=== PATIENT | female | born 1995 | race Two or more races ===

== ENCOUNTER 2016-07-11 17:04 | Observation (INO) | payer OTHER ==
[2015-07-28 17:23] VITALS: BP 115/64
== END 2016-07-12 | disposition home or self-care (01) ==
LOC: 3 SO LND 17:04
PROVIDERS: ADMIT Specialist; ATTEND Specialist
DX: O9A.213 Injury, poisoning and certain other consequences of external causes complicating pregnancy, third trimester (principal); S93.402A Sprain of unspecified ligament of left ankle, initial encounter; W17.89XA Other fall from one level to another, initial encounter; Y93.89 Activity, other specified; Y92.89 Other specified places as the place of occurrence of the external cause; Y99.8 Other external cause status; Z3A.35 35 weeks gestation of pregnancy
CPT/HCPCS: G0378; G0379

== ENCOUNTER 2016-07-11 17:49 | Emergency (ER) | payer OTHER ==
[~2016-07-11] VITALS: Ht 152.4 cm; Wt 70.3 kg
[2016-07-11 18:00] VITALS: BP 113/73
[2016-07-11] MEDS ORDERED: ACETAMINOPHEN 500 MG TABLET PO ONE (18:15)
--- NOTE | 2016-07-11 18:21 | ED.ADGEN ---
Past Medical History Past Medical History: No Pertinent History, Other Additional Past Medical Histor: pt denies Past Surgical History: No Surgical History Alcohol Use: None Drug Use: None Adult General Chief Complaint Chief Complaint: ANKLE PROBLEM HPI HPI Patient is a 21 year old woman, , 35 weeks , who presents to the emergency department with a complaint of left lower extremity pain. Patient states that she was having difficulties opening the door to her apartment, so she decided to exit her apartment through the first floor window. She states that it was about 5 feet off the ground by her approximation. She states that she did land on her feet, however her left ankle rolled at that time, and she did fall to the ground. She landed on her legs. Did not strike her abdomen or back. Did not strike her head. Denies any headache, neck pain, weakness or tingling, any abdominal pain. She states that she had back pain shortly after it occurred, but has no back pain now. Patient was evaluated in labor and delivery prior to her ED evaluation, and was cleared from her standpoint. She has not had any hematuria, or any other concerning findings. She states that she was able to walk after this occurred but was limping due to pain primarily in her foot and ankle. Denies any injuries previously. Patient takes vitamins, no other medications or medical problems. Review of Systems Review of Systems Constitutional: Denies fever or chills. [] Eyes: Denies change in visual acuity. [] HENT: Denies nasal congestion or sore throat. [] Respiratory: Denies cough or shortness of breath. [] Cardiovascular: Denies chest pain or edema. [] GI: Denies abdominal pain, nausea, vomiting, bloody stools or diarrhea. [] : Denies dysuria. [] Musculoskeletal: Denies back pain, complaining of pain in the left lower extremity. Integument: Denies rash. [] Neurologic: Denies headache, focal weakness or sensory changes. [] Endocrine: Denies polyuria or polydipsia. [] Lymphatic: Denies swollen glands. [] Psychiatric: Denies depression or anxiety. [] Current Medications Current Medications Current Medications Medications (Trade) Dose Ordered Sig/Audra Start Time Stop Time Status Last Admin Dose Admin Acetaminophen (Tylenol) 1,000 mg 1X ONCE 07/11/16 18:15 07/11/16 18:17 DC 07/11/16 18:41 1,000 MG Allergies Allergies Allergies Coded Allergies Type Severity Reaction Last Updated Verified No Known Drug Allergies 07/28/15 No Physical Exam Physical Exam Constitutional: Well developed, well nourished, no acute distress, non-toxic appearance. [] HENT: Normocephalic, atraumatic, bilateral external ears normal, oropharynx moist, no oral exudates, nose normal. [] Eyes: PERRLA, EOMI, conjunctiva normal, no discharge. [] Neck: Normal range of motion, no tenderness, supple, no stridor. [] Cardiovascular:Heart rate regular rhythm, no murmur, S1, S2, rubs or gallops. [] Lungs & Thorax: Bilateral breath sounds clear to auscultation, no wheezing, rhonchi, rales. [] Abdomen: Bowel sounds normal, gravid abdomen, soft, no tenderness, no masses, no pulsatile masses. [] Skin: Warm, dry, no erythema, no rash. [] Back: No no midline step-offs or deformities, no tenderness, no CVA tenderness. [] Extremities: Patient with tenderness to palpation both medial and lateral aspects of the malleolus of the knee, no patellar tenderness, no tenderness to palpation in the patellar fossa, no effusion or external signs of trauma, patient complains of tenderness along the anterior to the region, and also in the foot and ankle, although there is no external signs of trauma, and patient does have good range. States she has pain in this entire area with weightbearing. No cyanosis, no clubbing, ROM intact, no edema. [] Neurologic: Alert and oriented X 3, normal motor function, normal sensory function, no focal deficits noted. [] Psychologic: Affect normal, judgement normal, mood normal. [] Current Patient Data Vital Signs Vital Signs Date Time Temp Pulse Resp B/P Pulse Ox O2 Delivery O2 Flow Rate FiO2 07/11/16 18:00 98.1 114 20 98 Room Air 98.1 EKG EKG Not indicated. [] Radiology/Procedures Radiology/Procedures Left Knee x-ray: Three-view: No fracture subluxation, no evidence of soft tissue or bony abnormalities identified. No effusion. As interpreted by me. Left Tib-fib x-ray: 2 view: No fracture or subluxation, no evidence of soft tissue or bony abnormalities identified. No effusion. As interpreted by me. Left ankle x-ray: Three-view: No fracture or subluxation, no evidence of soft tissue or bony abnormalities identified. No effusion. As interpreted by me. Left foot x-ray: Three-view: No fracture subluxation, no evidence of soft tissue or bony abnormalities identified. No effusion. As interpreted by me. Course & Med Decision Making Course & Med Decision Making Pertinent Labs and Imaging studies reviewed. (See chart for details) Patient complaining of pain throughout her left lower extremity, no external signs of trauma identified, patient does have good range of motion, although she she has pain with ambulation. X-rays obtained of the knee, tib-fib, ankle and foot, without any bony abnormalities identified. Patient is ambulating although she complains of pain, which is improved after Jac wrap applied. I also discussed use of compression stockings for the remainder of her , for extra support as she has very mild edema noted. No other concerning findings identified, patient's vital signs and examination are otherwise unremarkable, patient instructed to continue to use Tylenol, as needed, vitamins, to follow-up with her [facility] as scheduled, and to return to the ED for concerning symptoms as discussed. Patient discharged home in stable condition with plan for ice, then heat, Jac wrap and follow-up per plan. Dragon Disclaimer Dragon Disclaimer This electronic medical record was generated, in whole or in part, using a voice recognition dictation system. Departure Impression: Primary Impression: Musculoskeletal pain of left lower extremity Disposition: 01 HOME, SELF-CARE Condition: IMPROVED FÉLIX KIM DO Jul 11, 2016 18:21
--- NOTE | 2016-07-12 07:37 | RAD ---
KNEE LEFT 4V, TIBIA FIBULA LEFT Clinical Indication: pain Comparison: None. Technique: Frontal, oblique, lateral and sunrise views of the left knee are obtained. Frontal and lateral views of the left tibia and fibula are obtained. Findings: No acute fracture or dislocation is seen. No significant joint effusion is seen. Surrounding soft tissues demonstrate no acute finding. IMPRESSION: No acute osseous injury involving the left knee or lower leg.
--- NOTE | 2016-07-12 07:40 | RAD ---
ANKLE LEFT 3V, FOOT LEFT 3V Clinical Indication: pain Comparison: None. Technique: Frontal, oblique and lateral views of the left ankle and foot are obtained. Findings: No acute fracture or dislocation is seen. Ankle mortise is maintained. Osseous structures of the foot appear intact. Surrounding soft tissues demonstrate no acute finding. IMPRESSION: No acute osseous injury.
== END 2016-07-11 19:07 | disposition home or self-care (01) ==
LOC: ER 17:49
DX: O26.893 Other specified pregnancy related conditions, third trimester (principal); M79.605 Pain in left leg; M79.1 Myalgia; Z3A.35 35 weeks gestation of pregnancy
CPT/HCPCS: 73564; 73590; 73610; 73630; 99284-25

== ENCOUNTER 2016-08-08 04:34 | Inpatient (IN) | payer OTHER ==
[~2016-08-08] VITALS: Ht 152.4 cm; Wt 74.4 kg
[2016-08-08] MEDS ORDERED: BUTORPHANOL 2 MG/ML VIAL. IV PRN (04:45)
[2016-08-08] MEDS ORDERED: IBUPROFEN 600 MG TABLET. PO PRN (04:45)
[2016-08-08] MEDS ORDERED: ONDANSETRON PF 4 MG/2 ML VIAL. IV PRN ×2 (04:45→14:15)
[2016-08-08] MEDS ORDERED: fentaNYL PF VIAL 100 MCG/2 ML VIAL IV PRN (04:45)
[2016-08-08] MEDS ORDERED: 0.9 % SODIUM CHLORIDE 10 ML DISP.SYRIN. IV PRN ×2 (04:45→15:30)
[2016-08-08] MEDS ORDERED: TERBUTALINE 1 MG/ML VIAL. SQ PRN (04:45)
[2016-08-08] MEDS ORDERED: OXYTOCIN 30 UNIT/500 ML PREMIX 500 ML IV PRN ×3 (04:45→15:30)
[2016-08-08] MEDS ORDERED: MAG HYDROX/ALUMINUM HYD/SIMETH 30 ML ORAL.SUSP PO PRN ×2 (04:45→15:30)
[2016-08-08] MEDS ORDERED: ACETAMINOPHEN 325 MG TABLET. PO PRN ×2 (04:45→15:30)
[2016-08-08] MEDS ORDERED: LIDOCAINE 1% PF 30 ML VIAL. INJ PRN (04:45)
[2016-08-08 05:21] LABS: HEMATOCRIT 35.3 % (36.0-47.0); HEMOGLOBIN 12.3 g/dL (12.0-15.5); RED BLOOD COUNT 4.06 x10^6/uL (3.50-5.40); RED CELL DISTRIBUTION WIDTH 15.2 % (11.5-14.5); WHITE BLOOD COUNT 10.4 x10^3/uL (4.0-11.0)
[2016-08-08 05:26] VITALS: BP 125/75
[2016-08-08] MEDS ORDERED: FERR-26 PO (07:38)
[2016-08-08] MEDS ORDERED: PNV1TABL25 PO (07:38)
[2016-08-08] MEDS: IV RINGERS,LACTATED 1000ML 1,000 ML IV SCH ×2 (07:48→12:56)
[2016-08-08] MEDS ORDERED: ROPIVacaine 0.2% IN 0.9%NACL PF 40 MG/20 ML DISP.SYRIN. ONE ×2 (13:30→13:34)
[2016-08-08] MEDS ORDERED: L&D EPIDURAL CASSETTE 100 ML PUMP.RESVR. EP ONE (13:30)
[2016-08-08] MEDS ORDERED: L&D EPIDURAL CASSETTE 100 ML EP ONE (13:34)
[2016-08-08] MEDS ORDERED: ePHEDrine PF IN SALINE 50 MG/5 ML DISP.SYRIN IV PRN (14:15)
[2016-08-08] MEDS ORDERED: fentaNYL PF VIAL 100 MCG/2 ML VIAL EPI ONE (14:15)
[2016-08-08] MEDS ORDERED: ROPIVacaine 0.2% PF 10 ML VIAL. EPI ONE (14:15)
[2016-08-08] MEDS ORDERED: NALOXONE 0.4 MG/ML VIAL. IV PRN (14:15)
[2016-08-08] MEDS ORDERED: LIDOCAINE 2% PF Vial for OR 5 ML VIAL. ONE ×2 (14:27→14:28)
[2016-08-08] MEDS ORDERED: HYDROCORTISONE 1% TOPICAL OINTMENT 30GM TUBE. TP PRN (15:30)
[2016-08-08] MEDS ORDERED: PHENYLEPH/MINERAL OIL/PETROLAT RECTAL OINTMENT 28GM TUBE. RC PRN (15:30)
[2016-08-08] MEDS ORDERED: diphenhydrAMINE HCL 25 MG CAPSULE PO PRN (15:30)
[2016-08-08] MEDS ORDERED: MAGNESIUM HYDROXIDE 2,400 MG/30 ML ORAL.SUSP. PO PRN (15:30)
[2016-08-08] MEDS ORDERED: SIMETHICONE 80 MG TAB.CHEW PO PRN (15:30)
[2016-08-08] MEDS ORDERED: ZOLPIDEM 5 MG TABLET. PO PRN (15:30)
[2016-08-08] MEDS ORDERED: BENZOCAINE 20% TOPICAL AEROSOL SPRAY 57GM CAN. TP PRN (15:30)
--- NOTE | 2016-08-08 15:47 | PDOC1 ---
OB - History Hx of Present Care: Good Care Ultrasounds: Normal mid trimester US Obstetrical Complications: None Medical Complications: None Past Family/Social History * Past Medical, Surgical, Family and Obstetric Histories reviewed from chart. Blood Type: O+ Rubella: Immune RPR/VDRL: Negative GBS Status: Negative HBsAG: Negative OB - Chief Complaint & HPI Date of Admission: Date of Admission: August 08, 2016 at 04:34 Chief Complaint/History : 2 Para: 1 EDC: August 10, 2016 Reason for admission: induction of labor Indication for induction: medical complication Admission Nurse Assessment Rev: Yes Problems: OB - Admission Exam Physical Exam Vitals: VS - Last 72 Hours, by Label Date Time Temp Pulse Resp B/P (MAP) Pulse Ox O2 Delivery O2 Flow Rate FiO2 08/08/16 05:26 97.7 78 18 125/75 (92) Room Air 97.7 HEENT: Normal, Nasal Mucosa Normal, Oropharynx Normal, Moist Membranes, Fontanelles Normal Heart: Regular Rate Lungs: Clear, Equal Abdomen: Gravid Extremities: Normal Pulses, No tenderness or swelling Reflexes: Normal Cervical Dilatation: 3cm Effacement: 50% Station: -3 Membranes: Intact Amniotic Fluid: Clear Heart Rate: Normal Accelerations: Accelerations Present Contractions on Admission: 6-10 Minutes Apart Intensity: Mild Assessment/Plan Assessment/Plan TIUP Induction ACSVD SARIKA GARNETT MD August 08, 2016 15:47
[2016-08-08] MEDS ORDERED: FERROUS SULFATE 325 MG TABLET. PO SCH (17:00)
[2016-08-08 21:15] VITALS: BP 114/73
[2016-08-08 23:39] VITALS: BP 124/76
[2016-08-09] MEDS: IBUPROFEN 800 MG TABLET. PO SCH ×3 (03:25→23:53)
[2016-08-09 06:17] VITALS: BP 115/76
[2016-08-09] MEDS: HYDROcodone/APAP 5/325MG 1 TAB TABLET PO PRN ×2 (08:30→18:06)
--- NOTE | 2016-08-09 09:40 | PDOC ---
Provider Note Provider Note Doing well; VSS Uterus NTTP FU in AM SARIKA GARNETT MD August 09, 2016 09:40
[2016-08-09 13:02] VITALS: BP 132/79
[2016-08-09 18:29] VITALS: BP 125/84
[2016-08-09 23:04] VITALS: BP 125/85
[2016-08-10 05:30] VITALS: BP 102/61
[2016-08-10] MEDS: IBUPROFEN 800 MG TABLET. PO SCH (08:26)
[2016-08-10] MEDS: HYDROcodone/APAP 5/325MG 1 TAB TABLET PO PRN ×2 (09:12→14:32)
--- NOTE | 2016-08-10 10:46 | PDOC3 ---
OB DISCHARGE SUMMARY DATE OF ADMISSION: 08/08/16 DATE OF DISCHARGE: 08/10/16 REASON FOR ADMISSION: Induction of labor PROCEDURES: Ultrasound INTRAPARTUM PROCEDURES: Vacum Extraction PROCEDURES: None OPERATIONS: None DISCHARGE DIAGNOSIS: Term Delivered DISCHARGE INFORMATION: Activity, Diet HOSPITAL COURSE unremarkable CONDITION AT DISCHARGE Stable SARIKA GARNETT MD August 10, 2016 10:46
[2016-08-10] MEDS ORDERED: HYDR-971 PO (10:49)
[2016-08-10] MEDS ORDERED: NAPR500T3 PO (10:50)
[2016-08-10 14:40] VITALS: BP 110/70
[2016-08-10 22:08] LABS: RPR REFLEX Non Reactive (Non Reactive)
== END 2016-08-10 16:30 | disposition home or self-care (01) | DRG 775 ==
LOC: 3 SO LND 04:34 → 3 NORTH 20:50
PROVIDERS: ADMIT Specialist; ATTEND Specialist
PROC: 10D07Z6 Extraction of Products of Conception, Vacuum, Via Natural or Artificial Opening (ICD-10-PCS; principal; 2016-08-08)
DX: O80 Encounter for full-term uncomplicated delivery (principal); Z37.0 Single live birth; Z3A.38 38 weeks gestation of pregnancy
CPT/HCPCS: 36415; 85014; 85027; 86593; 86850; 86900; 86901; J2590; J2795; J7120